=== PATIENT | female | born 1930 | race Caucasian/White ===

== ENCOUNTER 2017-08-08 17:04 | Inpatient (IN) | payer OTHER ==
--- NOTE | 2017-08-08 17:12 | PDOC ---
Attending Attestation - HPI HPI: 08/08/17 18:16 The patient is a 87 year old female, with a significant past medical history of hypertension, dementia, who presents to the emergency department via EMS for evaluation of cold-like symptoms. EMS reports the patient has been having dry cough and generalized body aches for approx. 2 days. The patient is unable to provide additional information secondary to dementia. Allergies: NKA Primary Care Physician: Dr. Story Documentation prepared by Martín Toth, acting as medical transport specialist for Cayla Culp DO. - Physicial Exam PE: 08/08/17 18:17 Constitutional: +Pleasantly demented. Awake, alert. No acute distress. Head: Normocephalic. Atraumatic Eyes: PERRL. EOMI. Conjunctivae are not pale. ENT: Mucous membranes are moist and intact. Posterior pharynx without exudates or erythema. Uvula midline. Neck: Supple. Full ROM. No lymphadenopathy. Cardiovascular: Regular rate. Regular rhythm. S1, S2 regular. Distal pulses are 2+ and symmetric. Pulmonary/Chest: No evidence of respiratory distress. Clear to auscultation bilaterally No wheezing, rales or rhonchi. Abdominal: +Suprapubic tenderness. Soft and non-distended. No rebound, guarding or rigidity. No organomegaly. No palpable masses. Good bowel sounds. Back: No CVA tenderness. Musculoskeletal: 2+ pitting edema lower extremities bilaterally. No redness or cellulitis. No cyanosis. No clubbing. Full range of motion in all extremities. No calf tenderness. Radial/pedal pulses are intact and 2+ bilaterally Skin: Skin is warm and dry. No petechiae. No purpura. Neurological: +Pleasantly demented. Cranial nerves II-XII are grossly intact. Normal speech. Strength is grossly symmetric. No sensory deficits. <Martín Toth - Last Filed: 08/08/17 18:16> - Resident Resident Name: Manan Parish - ED Attending Attestation I have performed the following: I have examined & evaluated the patient, The case was reviewed & discussed with the resident, I agree w/resident's findings & plan, Exceptions are as noted - Medical Decision Making 08/08/17 17:12 I, Dr. Cayla Culp DO, attest that this document has been prepared under my direction and personally reviewed by me in its entirety. I further attest, that it accurately reflects all work, treatment, procedures and medical decision -making performed by me. 08/08/17 18:22 a/p: 87yo pleasantly demented female sent from her ECF for eval of fever, cough , congestion -Pt is a poor historian and unable to provide a complete hx -febrile to 102.6 -will give tylenol -labs, cultures, trop, ekg, cxr, straight cath for ua -pt with suprapubic ttp -no rash, cellulitis -nonfocal neuro -if labs, cxr, ua negative will start tamiflu -will give ivf hydration <Cayla Culp - Last Filed: 08/08/17 18:25> Heart Score/ECG Review - ECG Intrepretation Comment:: 08/08/17 18:23 sinus at 71, nl axis, nl interval, lvh, no acute st/t wave findings <Cayla Culp - Last Filed: 08/08/17 18:25>
--- NOTE | 2017-08-08 17:15 | PDOC ---
History of Present Illness - General Stated Complaint: COLD SYMPTOMS Time Seen by Provider: 08/08/17 17:10 - History of Present Illness Initial Comments: 08/08/17 18:02 The patient is an 87 year old female with a history of HTN, Dementia who presents from [place] for evaluation of cold like symptoms. History is limited given the patient's baseline mental status. [place] papers indicate that the patient has been experiencing a non-productive cough and body aches over the past 2 days without any fevers prompting her presentation to the ED for evaluation. The patient endorses some SOB, but otherwise denies fevers, chest pain, abdominal pain, nausea, vomiting, or changes with urination or bowel movements. Past History - Past Medical History Allergies/Adverse Reactions: Allergies Allergy/AdvReac Type Severity Reaction Status Date / Time No Known Allergies Allergy Verified 08/08/17 18:19 Home Medications: Ambulatory Orders Amlodipine Besylate 5 mg PO BID 08/08/17 Aspirin 81 mg PO DAILY 08/08/17 Atorvastatin Calcium 20 mg PO DAILY 08/08/17 Carvedilol [Coreg -] 6.25 mg PO BID 08/08/17 Clopidogrel Bisulfate [Plavix] 75 mg PO DAILY 08/08/17 Cyanocobalamin [Vitamin B12 -] 500 mcg PO DAILY 08/08/17 Donepezil HCl 10 mg PO DAILY 08/08/17 Guaifenesin [Robitussin -] 5 ml PO TID 08/08/17 Memantine HCl 10 mg PO BID 08/08/17 Polyvinyl Alcohol [Tears Again] 1 drop OU BID 08/08/17 Valsartan 320 mg PO DAILY 08/08/17 Review of Systems - Review of Systems Comments:: 08/08/17 18:04 Constitutional: Body aches. No fevers, fatigue HEENT: No Rhinorrhea, nasal congestion, visual changes Cardiovascular: No chest pain, syncope, palpitations, lightheadedness Respiratory: Cough, COB. No Hemoptysis, Gastrointestinal: No Abdominal pain, Nausea, Vomiting, Constipation, Diarrhea, Melena Genitourinary: No Dysuria, Frequency, Urgency, Hesitancy, Hematuria, Flank pain Musculoskeletal: No Myalgia, arthralgia Skin: No rashes, itching, bruising, pallor Neurologic: No Headache, Dizziness, Numbness, Weakness, or Tingling Psychiatric: No Hallucinations. No SI or HI *Physical Exam - Physical Exam Comments: 08/08/17 18:05 General Appearance: Nourished. No Apparent Distress HEENT: EOMI, PAVITHRA. No Pharyngeal Erythema, Tonsillar Exudate, Tonsillar Erythema Neck: No Cervical Lymphadenopathy Respiratory/Chest: Lungs Clear, Normal Breath Sounds. No Crackles, Rales, Rhonchi, Wheezing Cardiovascular: Regular Rhythm, Regular Rate. No Murmur, Gallops, Rubs Gastrointestinal/Abdominal: Normal Bowel Sounds, Soft. Mild tenderness to palpation of over the suprapubic region. No Guarding, Rebound Musculoskeletal: No CVA Tenderness Extremity: Normal Capillary Refill Integumentary: Normal Color, Dry, Warm Neurologic: Fully Oriented, Alert, Normal Mood/Affect, Normal Response, ED Treatment Course - LABORATORY CBC & Chemistry Diagram: 08/08/17 18:45 08/08/17 18:45 Medical Decision Making - Medical Decision Making 08/08/17 18:06 The patient is an 87 year old female with a history of HTN, Dementia who presents from [place] for evaluation of cold like symptoms. Differential includes but is not limited to: Influenza, UTI, pneumonia, sepsis, infectious, metabolic derangement. Given the patient's limited history, we will obtain a septic work up including a cbc, cmp, lactate, ua, chest plain film, troponin, ekg to evaluate for possible etiologies. We will treat with tamiflu and tylenol here in the ED given her fever. We will continue to monitor and reassess. 08/08/17 23:46 CBC, cmp, ua are unremarkable. Chest plain film is unremarkable as preliminarily read by ED physician. Given the patient's physical exam and fevers here in the ED, we believe that she requires admission for further management of her symptoms. We discussed the case with the hospitalist team who accepted the patient for admission. *DC/Admit/Observation/Transfer Diagnosis at time of Disposition: Influenza-like illness Altered mental status Qualifiers: Altered mental status type: unspecified Qualified Code(s): R41.82 - Altered mental status, unspecified - Discharge Dispostion Condition at time of disposition: Guarded Admit: Yes - Referrals - Patient Instructions - Post Discharge Activity
[2017-08-08] MEDS ORDERED: SODIUM CHLORIDE 1,000 ML IV STA (18:29)
[2017-08-08] MEDS ORDERED: OSELTAMIVIR PHOSPHATE 75 MG CAPSULE PO ONE (18:30)
[2017-08-08] MEDS ORDERED: ACETAMINOPHEN 1000 MG/100 ML VIAL (NON FORMULARY) IVPB ONE (18:30)
[2017-08-08] MEDS ORDERED: OSELTAMIVIR PHOSPHATE 75 MG CAPSULE ONE (18:30)
[2017-08-08] MEDS ORDERED: ACETAMINOPHEN INJECTION 100 ML IVPB ONE (18:31)
[2017-08-08 18:54] LABS: BASO % 0.3 % (0-2.0); EOS % 0.3 % (0-4.5); HEMATOCRIT 40.2 % (32.4-45.2); HEMOGLOBIN 13.2 GM/dL (10.7-15.3); LYMPH % 16.1 % (8-40); MCH 30.4 pg (25.7-33.7); MCHC 32.9 g/dl (32.0-36.0); MEAN CELL VOLUME 92.5 fl (80-96); MEAN PLT VOLUME 8.7 fl (7.5-11.1); MONO % 8.6 % (3.8-10.2); NEUT % 74.7 % (42.8-82.8); PLATELET COUNT 151 K/MM3 (134-434); RBC 4.34 M/mm3 (3.60-5.2); RDW 13.7 % (11.6-15.6)
[2017-08-08 19:06] LABS: VENOUS PC02 42.6 mmHg (38-52); VENOUS PH 7.45 (7.32-7.42)
[2017-08-08 19:07] LABS: VENOUS PO2 19.6 mmHg (28-48)
[2017-08-08 19:08] LABS: INR 1.01 (0.82-1.09); PROTHROMBIN TIME (PATIENT) 11.4 SEC (9.98-11.88)
[2017-08-08 19:11] LABS: ACTIVATED PTT 29.7 SECONDS (26.9-34.4)
[2017-08-08 19:38] LABS: ALBUMIN 3.6 g/dl (3.4-5.0); ANION GAP 7 (8-16); BLOOD UREA NITROGEN 23 mg/dL (7-18); CALCIUM 8.6 mg/dL (8.5-10.1); CHLORIDE 102 mmol/L (98-107); CO2 29 mmol/L (21-32); GLUCOSE,RANDOM 99 mg/dL (74-106); POTASSIUM 4.2 mmol/L (3.5-5.1); SGOT/AST 20 U/L (15-37); SGPT/ALT 20 U/L (12-78); SODIUM 138 mmol/L (136-145)
[2017-08-08 19:43] LABS: ALK PHOS 73 U/L (45-117); BILIRUBIN,TOTAL 0.6 mg/dL (0.2-1.0); CREATININE 0.9 mg/dL (0.55-1.02); TOT PROT 7.3 g/dl (6.4-8.2)
[2017-08-08] MEDS ORDERED: PANTOPRAZOLE 40 MG TABLET (FP) ONE (19:51)
[2017-08-08 20:10] LABS: URINE APPEARANCE CLEAR; URINE BILIRUBIN NEGATIVE (NEGATIVE); URINE BLOOD NEGATIVE (NEGATIVE); URINE COLOR YELLOW; URINE GLUCOSE (UA) NEGATIVE (NEGATIVE); URINE KETONE NEGATIVE (NEGATIVE); URINE LEUK ESTERASE NEGATIVE (NEGATIVE); URINE NITRITE NEGATIVE (NEGATIVE); URINE PROTEIN NEGATIVE (NEGATIVE); URINE UROBILINOGEN 4.0 E.U/dl mg/dL (0.2-1.0)
--- NOTE | 2017-08-08 21:44 | HP ---
CHIEF COMPLAINT: Flulike Symptoms x4 days PCP:[facility] Tabitha-Dr Apple HISTORY OF PRESENT ILLNESS: Pt is demented (confused at baseline) Hx was obtained from medical chart, and by [facility] the jail. Pt is an 87 yo F with PMHx of dementia, HTN, HLD, CAD s/p stents x6 BIBEMS by ambulance from [facility] with headaches, weakness and cough. Pt has had a dry cough with generalized body aches for about 4 days. No documented fever, no n/v, no change in urinary or bowel habits. The aide noticed unsteady gait in her today. At baseline she is often confused but able to communicate with other residents and staff, ambulates with a walker and takes regular diet. In ED pt was noted to have Tmax of 102.6 ER course was notable for: (1)Tmax-102.6, (2)ABG,CMP, CBC, UA-ve (3)Iv tylenol, tamifly 75 mg given (4) urine, bld cx-pending (5) EKG- NSR, QTC 419 (6) CXR- not read (no infiltrates noted at this point) Recent Travel: PAST MEDICAL HISTORY: dementia, HTN, HLD, CAD s/p stent PAST SURGICAL HISTORY: s/p stents for CAD Social History: Smoking:Previous smoker Alcohol:No Drugs:No Family History: Allergies No Known Allergies Allergy (Verified 08/08/17 18:19) HOME MEDICATIONS: Home Medications Medication Instructions Recorded Amlodipine Besylate 5 mg PO BID 08/08/17 Aspirin 81 mg PO DAILY 08/08/17 Atorvastatin Calcium 20 mg PO DAILY 08/08/17 Carvedilol [Coreg -] 6.25 mg PO BID 08/08/17 Clopidogrel Bisulfate [Plavix] 75 mg PO DAILY 08/08/17 Cyanocobalamin [Vitamin B12 -] 500 mcg PO DAILY 08/08/17 Donepezil HCl 10 mg PO DAILY 08/08/17 Guaifenesin [Robitussin -] 5 ml PO TID 08/08/17 Memantine HCl 10 mg PO BID 08/08/17 Polyvinyl Alcohol [Tears Again] 1 drop OU BID 08/08/17 Valsartan 320 mg PO DAILY 08/08/17 REVIEW OF SYSTEMS CONSTITUTIONAL: fever+ Absent: chills, diaphoresis, generalized weakness, malaise, loss of appetite, weight change HEENT: Absent: rhinorrhea, nasal congestion, throat pain, throat swelling, difficulty swallowing, mouth swelling, ear pain, eye pain, visual changes CARDIOVASCULAR: Absent: chest pain, syncope, palpitations, irregular heart rate, lightheadedness , peripheral edema RESPIRATORY: cough+ Absent: shortness of breath, dyspnea with exertion, orthopnea, wheezing, stridor, hemoptysis GASTROINTESTINAL: Absent: abdominal pain, abdominal distension, nausea, vomiting, diarrhea, constipation, melena, hematochezia GENITOURINARY: Absent: dysuria, frequency, urgency, hesitancy, hematuria, flank pain, genital pain MUSCULOSKELETAL: myalgia+ Absent:arthralgia, joint swelling, back pain, neck pain SKIN: Absent: rash, itching, pallor HEMATOLOGIC/IMMUNOLOGIC: Absent: easy bleeding, easy bruising, lymphadenopathy, frequent infections ENDOCRINE: Absent: unexplained weight gain, unexplained weight loss, heat intolerance, cold intolerance NEUROLOGIC: unsteady gait+ Absent: headache, focal weakness or paresthesias, dizziness, seizure, mental status changes, bladder or bowel incontinence PSYCHIATRIC: Absent: anxiety, depression, suicidal or homicidal ideation, hallucinations. PHYSICAL EXAMINATION Vital Signs - 24 hr 08/08/17 17:05 Temperature 102.6 F H Pulse Rate 76 Respiratory 18 Rate Blood Pressure 147/78 O2 Sat by Pulse 100 Oximetry (%) GENERAL: Awake, alert, oriented to person (demented ), in no acute respiration distress. HEAD: Normal with no signs of trauma. EYES: Pupils equal, round and reactive to light, sclera anicteric, conjunctiva clear. EARS, NOSE, THROAT: oropharynx clear without exudates. Moist mucous membranes. NECK: Normal range of motion, supple without lymphadenopathy, JVD LUNGS: Breath sounds equal, clear to auscultation bilaterally. No wheezes, and no crackles. HEART: Regular rate and rhythm, normal S1 and S2 , murmur+ ABDOMEN: Soft, nontender, not distended, normoactive bowel sounds, no guarding, no rebound, no masses. MUSCULOSKELETAL: Normal range of motion at all joints. No bony deformities or tenderness. No CVA tenderness. UPPER EXTREMITIES: 2+ pulses, warm, well-perfused. No cyanosis. No clubbing. No peripheral edema. LOWER EXTREMITIES: 2+ pulses, warm, well-perfused. No calf tenderness. 1+ bilat. peripheral edema. NEUROLOGICAL: Cranial nerves II-XII intact. Normal speech. PSYCHIATRIC: Cooperative. Good eye contact. Appropriate mood and affect. CBC, BMP 08/08/17 18:45 08/08/17 18:45 Laboratory Results - last 24 hr 08/08/17 08/08/17 08/08/17 18:45 18:45 18:45 WBC 9.0 RBC 4.34 Hgb 13.2 Hct 40.2 MCV 92.5 MCH 30.4 MCHC 32.9 RDW 13.7 Plt Count 151 MPV 8.7 Neutrophils % 74.7 Lymphocytes % 16.1 Monocytes % 8.6 Eosinophils % 0.3 Basophils % 0.3 PT with INR 11.40 INR 1.01 PTT (Actin FS) 29.7 VBG pH 7.45 H POC VBG pCO2 42.6 POC VBG pO2 19.6 L* Mixed VBG HCO3 29.2 H Sodium Potassium Chloride Carbon Dioxide Anion Gap BUN Creatinine Creat Clearance w eGFR Random Glucose Lactic Acid Calcium Total Bilirubin AST ALT Alkaline Phosphatase Creatine Kinase Troponin I Total Protein Albumin Urine Color Urine Appearance Urine pH Ur Specific New Era Urine Protein Urine Glucose (UA) Urine Ketones Urine Blood Urine Nitrite Urine Bilirubin Urine Urobilinogen Ur Leukocyte Esterase 08/08/17 08/08/17 08/08/17 18:45 18:45 19:57 WBC RBC Hgb Hct MCV MCH MCHC RDW Plt Count MPV Neutrophils % Lymphocytes % Monocytes % Eosinophils % Basophils % PT with INR INR PTT (Actin FS) VBG pH POC VBG pCO2 POC VBG pO2 Mixed VBG HCO3 Sodium 138 Potassium 4.2 Chloride 102 Carbon Dioxide 29 Anion Gap 7 L BUN 23 H Creatinine 0.9 Creat Clearance w eGFR 58.95 Random Glucose 99 Lactic Acid 1.4 Calcium 8.6 Total Bilirubin 0.6 AST 20 ALT 20 Alkaline Phosphatase 73 Creatine Kinase 90 Troponin I < 0.02 Total Protein 7.3 Albumin 3.6 Urine Color Yellow Urine Appearance Clear Urine pH 7.0 Ur Specific New Era 1.020 Urine Protein Negative Urine Glucose (UA) Negative Urine Ketones Negative Urine Blood Negative Urine Nitrite Negative Urine Bilirubin Negative Urine Urobilinogen 4.0 e.u/dl H Ur Leukocyte Esterase Negative ASSESSMENT/PLAN: Pt is an 87 yo F with PMHx of dementia, HTN, HLD, CAD s/p stents x6 BIBEMS by ambulance from [facility] with headaches, weakness and cough. Influenza: Cough, fever, myalgias, with high suspicion for flu Despite Flu swab taken but unable to be run Tamiflu 75mg given in ED Cont Tamiflu 30mg bid x5 days (renal dose per pharmacy) Iv fluid normal saline @75/hr Follow cx- urine and bld CBC, CMP UA--ve CXR- pending reading, no clear infiltrates noted Cont Robutussin 5ml bid Cont Vit B12 500mg Hold off antibiotics for now as no clear indication HTN: Resume home Amlodipine 5mg bid Coreg 6.25 bid Valsartan 320mg daily HLD, Atorvastatin 20mg HS CAD s/p stents x6 Plavix 75mg daily ASA 81mg daily Dementia: Memantine 10mg bid Donepezil 10mg daily FEN NS @75 Monitor lytes Regular diet PPX Heparin SQ 5000iu tids Dispo: Admit Med surg Visit type - Emergency Visit Emergency Visit: Yes ED Registration Date: 08/08/17 Care time: The patient presented to the Emergency Department on the above date and was hospitalized for further evaluation of their emergent condition. - New Patient This patient is new to me today: Yes Date on this admission: 08/09/17 - Critical Care Critical Care patient: No
[2017-08-08] MEDS ORDERED: ACETAMINOPHEN 325 MG TABLET (FP) PO PRN (22:59)
--- NOTE | 2017-08-08 23:12 | PN ---
Teaching Attending Note Name of Resident: Donna Paris ATTENDING PHYSICIAN STATEMENT I saw and evaluated the patient. I reviewed the resident's note and discussed the case with the resident. I agree with the resident's findings and plan as documented. HPI per report as pt is poor historian SUBJECTIVE: 87yo F with PMH dementia, HTN, dyslipidemia, CAD s/p 6 stents sent [address] [facility] for myalgia, fatigue and dry cough x 5days. pt reports no symptoms currently. OBJECTIVE: Last Vital Signs Temp Pulse Resp BP Pulse Ox 99.4 F 71 20 148/62 95 08/08/17 22:49 08/08/17 22:49 08/08/17 22:49 08/08/17 22:49 08/08/17 22:49 General NAD A&O x2 (self and location), does not follow commands CV S1 S2 + lungs poor air entry, decreased breath sounds ABdomen soft NT/ND Extremiteis no pedal edema ASSESSMENT AND PLAN: 87yo F with PMH dementia, HTN, dyslipidemia, CAD s/p 6 stents sent from [facility] for myalgia, fatigue and dry cough x 5days 1. FLu- medicine admission. Tm 102.6. hospital shortage of flu swabs, however based on present symptoms high suspicion for flu. will start tamiflu. IVF, droplet precautions. 2. HTN- cont home medications 3. Dementia- cont memantine, 4. CAD s/p stents- cont plavix/asa 5. DVT ppx- hep sq
[2017-08-08] MEDS: SODIUM CHLORIDE 1,000 ML IV SCH (23:33)
[2017-08-09] MEDS: HEPARIN NA (PORCINE) 5,000 UNITS/ML 1ML VIAL SQ SCH ×3 (06:01→22:30)
[2017-08-09] MEDS: guaiFENesin 200 MG/10 ML 10 ML UNIT-DOSE CUPS PO SCH ×3 (06:01→22:30)
[2017-08-09 08:54] LABS: BASO % 0.3 % (0-2.0); EOS % 0.3 % (0-4.5); HEMATOCRIT 38.5 % (32.4-45.2); HEMOGLOBIN 12.3 GM/dL (10.7-15.3); LYMPH % 14.1 % (8-40); MCH 29.8 pg (25.7-33.7); MCHC 32.1 g/dl (32.0-36.0); MEAN PLT VOLUME 9.5 fl (7.5-11.1); NEUT % 79.3 % (42.8-82.8); RBC 4.14 M/mm3 (3.60-5.2); RDW 13.6 % (11.6-15.6); WHITE BLOOD COUNT 13.2 K/mm3 (4.0-10.0)
[2017-08-09 09:02] LABS: ALBUMIN 3.1 g/dl (3.4-5.0); ALK PHOS 64 U/L (45-117); ANION GAP 9 (8-16); BLOOD UREA NITROGEN 15 mg/dL (7-18); CALCIUM 8.4 mg/dL (8.5-10.1); CHLORIDE 106 mmol/L (98-107); CO2 27 mmol/L (21-32); CREATININE 0.6 mg/dL (0.55-1.02); GLUCOSE,RANDOM 105 mg/dL (74-106); PHOSPHOROUS 2.9 mg/dL (2.5-4.9); POTASSIUM 3.9 mmol/L (3.5-5.1); SGOT/AST 20 U/L (15-37); SGPT/ALT 15 U/L (12-78); SODIUM 142 mmol/L (136-145); TOT PROT 6.4 g/dl (6.4-8.2)
[2017-08-09 09:04] LABS: MAGNESIUM 2.2 mg/dL (1.8-2.4)
[2017-08-09 09:08] LABS: ACTIVATED PTT > 400.0 SECONDS (26.9-34.4)
--- NOTE | 2017-08-09 09:11 | EKG ---
Test Reason : Blood Pressure : / mmHG Vent. Rate : 071 BPM Atrial Rate : 071 BPM P-R Int : 178 ms QRS Dur : 084 ms QT Int : 386 ms P-R-T Axes : 056 -12 056 degrees QTc Int : 419 ms NORMAL SINUS RHYTHM MODERATE VOLTAGE CRITERIA FOR LVH, MAY BE NORMAL VARIANT NO PREVIOUS ECGS AVAILABLE Confirmed by LUCA TAVERAS MD ([id number]) on 08/09/2017 9:11:22 AM Referred By: AM Confirmed By:LUCA TAVERAS MD
[2017-08-09] MEDS ORDERED: OSELTAMIVIR PHOSPHATE 75 MG CAPSULE PO SCH (10:00)
[2017-08-09 10:13] LABS: PLATELET COUNT 140 K/MM3 (134-434); PLATELET ESTIMATE ADEQUATE
[2017-08-09] MEDS: CLOPIDOGREL BISULFATE 75 MG TABLET (FP) PO SCH (10:25)
[2017-08-09] MEDS: CARVEDILOL 6.25 MG TABLET (FP) PO SCH ×2 (10:25→22:30)
[2017-08-09] MEDS: ASPIRIN 81 MG CHEWABLE TABLETS PO SCH (10:25)
[2017-08-09] MEDS: CYANOCOBALAMIN 1,000 MCG TABLET (FP) PO SCH (10:25)
[2017-08-09] MEDS: VALSARTAN 160 MG TABLET (UD) PO SCH (10:26)
[2017-08-09] MEDS: MEMANTINE HCL 10 MG TABLET (FP) PO SCH ×2 (10:26→22:30)
[2017-08-09] MEDS: OSELTAMIVIR PHOSPHATE 30 MG CAPSULE PO SCH ×2 (10:26→22:52)
[2017-08-09] MEDS: amLODIPine BESYLATE 5 MG TABLET (FP) PO SCH ×2 (10:27→22:30)
--- NOTE | 2017-08-09 16:41 | PN ---
Progress Note (short form) - Note Progress Note: Subjective: The patient was seen and examined in the ED, she is tearful stating "I don't know what is wrong with me". She denies any discomfort at this time. She is still with a cough Current Medications Generic Name Dose Route Start Last Admin Trade Name Freq PRN Reason Stop Dose Admin Acetaminophen 650 mg 08/08/17 22:59 Tylenol - PO Q6H PRN FEVER Amlodipine Besylate 5 mg 08/09/17 10:00 08/09/17 10:27 Norvasc - PO 5 mg BID SNEHAL Administration Artificial Tears 1 drop 08/09/17 10:00 Artificial Tears OU BID SNEHAL Aspirin 81 mg 08/09/17 10:00 08/09/17 10:25 Asa - PO 81 mg DAILY SNEHAL Administration Atorvastatin Calcium 20 mg 08/09/17 22:00 Lipitor - PO HS SNEHAL Carvedilol 6.25 mg 08/09/17 10:00 08/09/17 10:25 Coreg - PO 6.25 mg BID SNEHAL Administration Clopidogrel Bisulfate 75 mg 08/09/17 10:00 08/09/17 10:25 Plavix - PO 75 mg DAILY SNEHAL Administration Cyanocobalamin 500 mcg 08/09/17 10:00 08/09/17 10:25 Vitamin B12 - PO 500 mcg DAILY SNEHAL Administration Donepezil HCl 10 mg 08/09/17 22:00 Aricept - PO HS SNEHAL Guaifenesin 5 ml 08/09/17 06:00 08/09/17 06:01 Robitussin - PO 5 ml TID SNEHAL Administration Heparin Sodium (Porcine) 5,000 unit 08/09/17 06:00 08/09/17 06:01 Heparin - SQ 5,000 unit TID SNEHAL Administration Sodium Chloride 1,000 mls @ 75 mls/hr 08/08/17 23:30 08/08/17 23:33 Normal Saline - IV 75 mls/hr ASDIR SNEHAL Administration Memantine 10 mg 08/09/17 10:00 08/09/17 10:26 Namenda - PO 10 mg BID SNEHAL Administration Oseltamivir Phosphate 30 mg 08/09/17 10:00 08/09/17 10:26 Tamiflu - PO 08/14/17 09:59 30 mg BID SNEHAL Administration Valsartan 320 mg 08/09/17 10:00 08/09/17 10:26 Diovan - PO 320 mg DAILY SNEHAL Administration Objective: Vital Signs Period Temp Pulse Resp BP Sys/Medel Pulse Ox Last 24 Hr 97.8 F-99.4 F 62-82 14-20 116-148/53-74 95-96 Physical Exam: General: A&Ox1 (person only) Lungs: B/l rhonchi Heart: RRR, S1S2 Abd: Soft, non-tender, non-distended. Normoactive bowel sounds Neuro: Unable to assess, patient is crying and will not follow commands Ext: No edema CBCD WBC 13.2 K/mm3 (4.0-10.0) H D 08/09/17 08:22 RBC 4.14 M/mm3 (3.60-5.2) 08/09/17 08:22 Hgb 12.3 GM/dL (10.7-15.3) 08/09/17 08:22 Hct 38.5 % (32.4-45.2) 08/09/17 08:22 MCV 93.0 fl (80-96) 08/09/17 08:22 MCHC 32.1 g/dl (32.0-36.0) 08/09/17 08:22 RDW 13.6 % (11.6-15.6) 08/09/17 08:22 Plt Count 140 K/MM3 (134-434) 08/09/17 08:22 MPV 9.5 fl (7.5-11.1) 08/09/17 08:22 CMP Sodium 142 mmol/L (136-145) 08/09/17 08:22 Potassium 3.9 mmol/L (3.5-5.1) 08/09/17 08:22 Chloride 106 mmol/L (98-107) 08/09/17 08:22 Carbon Dioxide 27 mmol/L (21-32) 08/09/17 08:22 Anion Gap 9 (8-16) 08/09/17 08:22 BUN 15 mg/dL (7-18) 08/09/17 08:22 Creatinine 0.6 mg/dL (0.55-1.02) 08/09/17 08:22 Creat Clearance w eGFR > 60 (>60) 08/09/17 08:22 Random Glucose 105 mg/dL (74-106) 08/09/17 08:22 Calcium 8.4 mg/dL (8.5-10.1) L 08/09/17 08:22 Total Bilirubin 1.0 mg/dL (0.2-1.0) D 08/09/17 08:22 AST 20 U/L (15-37) 08/09/17 08:22 ALT 15 U/L (12-78) 08/09/17 08:22 Alkaline Phosphatase 64 U/L (45-117) 08/09/17 08:22 Total Protein 6.4 g/dl (6.4-8.2) 08/09/17 08:22 Albumin 3.1 g/dl (3.4-5.0) L 08/09/17 08:22 CARDIAC ENZYMES Creatine Kinase 90 IU/L (26-192) 08/08/17 18:45 Troponin I < 0.02 ng/ml (0.00-0.05) 08/09/17 08:22 Microbiology 08/08/17 20:55 Nasopharyngeal Swab Influenza Types A,B Antigen (THEA) - Preliminary 08/08/17 20:55 Nasopharyngeal Swab - Preliminary Assessment: This is an 87 year old female with PMHx of dementia, HTN, dyslipidemia, CAD s/p stents x6, who presented to the ED with myalgia, fatigue, and dry cough x5 days. Plan: 1) Influenza - Will empirically treat for influenza - Influenza A&B pending - Tamiflu 30mg po bid (dosing for CrCl 30) - Isolation precautions 2) Leukocytosis - Likely 2/2 influenza - Continue to trend - F/u urine and blood cultures - Chest x-ray with no acute process 3) CAD s/p stents - Continue Plavix - Continue ASA 4) Dementia - Aricept - Continue Namenda 5) HTN - Continue Coreg - Continue Norvasc - Continue Diovan 6) F/E/N: - Sodium controlled diet - Monitor electrolytes 7) Prophylaxis: - Heparin 5,000u sq bid - PT evaluation 8) Dispo: - Requires continued inpatient care Visit type - Emergency Visit Emergency Visit: Yes ED Registration Date: 08/08/17 Care time: The patient presented to the Emergency Department on the above date and was hospitalized for further evaluation of their emergent condition. - New Patient This patient is new to me today: Yes Date on this admission: 08/09/17 - Critical Care Critical Care patient: No
[2017-08-09] MEDS ORDERED: ALBUTEROL SO4 0.083% IH SOL 2.5 MG/3 ML VIAL.NEB. NEB PRN (17:44)
[2017-08-09] MEDS: ARTIFICIAL TEARS (POLYVINYL ALCOHOL 1.4%) OPTH DROPS OU SCH ×2 (19:49→22:52)
[2017-08-09] MEDS: SODIUM CHLORIDE 1,000 ML IV SCH ×2 (21:57→23:30)
[2017-08-09 22:03] LABS: HEMATOCRIT 40.3 % (32.4-45.2); HEMOGLOBIN 13.3 GM/dL (10.7-15.3); MCH 30.7 pg (25.7-33.7); MEAN CELL VOLUME 93.1 fl (80-96); MEAN PLT VOLUME 8.4 fl (7.5-11.1); PLATELET COUNT 162 K/MM3 (134-434); RBC 4.33 M/mm3 (3.60-5.2); RDW 13.7 % (11.6-15.6); WHITE BLOOD COUNT 9.4 K/mm3 (4.0-10.0)
[2017-08-09 22:11] VITALS: BMI 25.9
[2017-08-09] MEDS: DONEPEZIL HCL 10 MG TABLET (FP) PO SCH (22:30)
[2017-08-09] MEDS: ATORVASTATIN CA 20 MG TABLET (FP) PO SCH (22:30)
[2017-08-10] MEDS ORDERED: PT OWN MED DRAWER 7, Y5N ONE ×2 (05:26→09:32)
[2017-08-10] MEDS: guaiFENesin 200 MG/10 ML 10 ML UNIT-DOSE CUPS PO SCH ×3 (06:09→21:53)
[2017-08-10 08:30] LABS: HEMATOCRIT 34.5 % (32.4-45.2); HEMOGLOBIN 11.4 GM/dL (10.7-15.3); MCH 30.5 pg (25.7-33.7); MCHC 33.1 g/dl (32.0-36.0); MEAN CELL VOLUME 92.2 fl (80-96); MEAN PLT VOLUME 8.6 fl (7.5-11.1); PLATELET COUNT 146 K/MM3 (134-434); RBC 3.74 M/mm3 (3.60-5.2); RDW 13.1 % (11.6-15.6); WHITE BLOOD COUNT 8.4 K/mm3 (4.0-10.0)
[2017-08-10] MEDS: MEMANTINE HCL 10 MG TABLET (FP) PO SCH ×2 (09:39→21:53)
[2017-08-10] MEDS: ASPIRIN 81 MG CHEWABLE TABLETS PO SCH (09:39)
[2017-08-10] MEDS: CARVEDILOL 6.25 MG TABLET (FP) PO SCH ×2 (09:39→21:53)
[2017-08-10] MEDS: HEPARIN NA (PORCINE) 5,000 UNITS/ML 1ML VIAL SQ SCH ×2 (09:39→21:54)
[2017-08-10] MEDS: CYANOCOBALAMIN 1,000 MCG TABLET (FP) PO SCH (09:39)
[2017-08-10] MEDS: CLOPIDOGREL BISULFATE 75 MG TABLET (FP) PO SCH (09:39)
[2017-08-10] MEDS: ARTIFICIAL TEARS (POLYVINYL ALCOHOL 1.4%) OPTH DROPS OU SCH ×2 (09:39→21:54)
[2017-08-10] MEDS: VALSARTAN 160 MG TABLET (UD) PO SCH (09:39)
[2017-08-10] MEDS: amLODIPine BESYLATE 5 MG TABLET (FP) PO SCH ×2 (09:39→21:53)
[2017-08-10] MEDS: OSELTAMIVIR PHOSPHATE 30 MG CAPSULE PO SCH ×2 (09:40→21:54)
--- NOTE | 2017-08-10 11:07 | PN ---
Progress Note (short form) - Note Progress Note: Subjective: The patient was seen and examined at the bedside, remains tearful Current Medications Generic Name Dose Route Start Last Admin Trade Name Freq PRN Reason Stop Dose Admin Acetaminophen 650 mg 08/08/17 22:59 Tylenol - PO Q6H PRN FEVER Amlodipine Besylate 5 mg 08/09/17 10:00 08/09/17 10:27 Norvasc - PO 5 mg BID SNEHAL Administration Artificial Tears 1 drop 08/09/17 10:00 Artificial Tears OU BID SNEHAL Aspirin 81 mg 08/09/17 10:00 08/09/17 10:25 Asa - PO 81 mg DAILY SNEHAL Administration Atorvastatin Calcium 20 mg 08/09/17 22:00 Lipitor - PO HS SNEHAL Carvedilol 6.25 mg 08/09/17 10:00 08/09/17 10:25 Coreg - PO 6.25 mg BID SNEHAL Administration Clopidogrel Bisulfate 75 mg 08/09/17 10:00 08/09/17 10:25 Plavix - PO 75 mg DAILY SNEHAL Administration Cyanocobalamin 500 mcg 08/09/17 10:00 08/09/17 10:25 Vitamin B12 - PO 500 mcg DAILY SNEHAL Administration Donepezil HCl 10 mg 08/09/17 22:00 Aricept - PO HS SNEHAL Guaifenesin 5 ml 08/09/17 06:00 08/09/17 06:01 Robitussin - PO 5 ml TID SNEHAL Administration Heparin Sodium (Porcine) 5,000 unit 08/09/17 06:00 08/09/17 06:01 Heparin - SQ 5,000 unit TID SNEHAL Administration Sodium Chloride 1,000 mls @ 75 mls/hr 08/08/17 23:30 08/08/17 23:33 Normal Saline - IV 75 mls/hr ASDIR SNEHAL Administration Memantine 10 mg 08/09/17 10:00 08/09/17 10:26 Namenda - PO 10 mg BID SNEHAL Administration Oseltamivir Phosphate 30 mg 08/09/17 10:00 08/09/17 10:26 Tamiflu - PO 08/14/17 09:59 30 mg BID SNEHAL Administration Valsartan 320 mg 08/09/17 10:00 08/09/17 10:26 Diovan - PO 320 mg DAILY SNEHAL Administration Objective: Vital Signs Period Temp Pulse Resp BP Sys/Medel Pulse Ox Last 24 Hr 97.8 F-99.4 F 62-82 14-20 116-148/53-74 95-96 Physical Exam: General: A&Ox1 (person only) Lungs: B/l rhonchi Heart: RRR, S1S2 Abd: Soft, non-tender, non-distended. Normoactive bowel sounds Neuro: Patient uncooperative Ext: No edema CBCD WBC 8.4 K/mm3 (4.0-10.0) 08/10/17 07:00 RBC 3.74 M/mm3 (3.60-5.2) 08/10/17 07:00 Hgb 11.4 GM/dL (10.7-15.3) D 08/10/17 07:00 Hct 34.5 % (32.4-45.2) 08/10/17 07:00 MCV 92.2 fl (80-96) 08/10/17 07:00 MCHC 33.1 g/dl (32.0-36.0) 08/10/17 07:00 RDW 13.1 % (11.6-15.6) 08/10/17 07:00 Plt Count 146 K/MM3 (134-434) 08/10/17 07:00 MPV 8.6 fl (7.5-11.1) 08/10/17 07:00 CMP Sodium 142 mmol/L (136-145) 08/09/17 08:22 Potassium 3.9 mmol/L (3.5-5.1) 08/09/17 08:22 Chloride 106 mmol/L (98-107) 08/09/17 08:22 Carbon Dioxide 27 mmol/L (21-32) 08/09/17 08:22 Anion Gap 9 (8-16) 08/09/17 08:22 BUN 15 mg/dL (7-18) 08/09/17 08:22 Creatinine 0.6 mg/dL (0.55-1.02) 08/09/17 08:22 Creat Clearance w eGFR > 60 (>60) 08/09/17 08:22 Random Glucose 105 mg/dL (74-106) 08/09/17 08:22 Calcium 8.4 mg/dL (8.5-10.1) L 08/09/17 08:22 Total Bilirubin 1.0 mg/dL (0.2-1.0) D 08/09/17 08:22 AST 20 U/L (15-37) 08/09/17 08:22 ALT 15 U/L (12-78) 08/09/17 08:22 Alkaline Phosphatase 64 U/L (45-117) 08/09/17 08:22 Total Protein 6.4 g/dl (6.4-8.2) 08/09/17 08:22 Albumin 3.1 g/dl (3.4-5.0) L 08/09/17 08:22 CARDIAC ENZYMES Creatine Kinase 90 IU/L (26-192) 08/08/17 18:45 Troponin I < 0.02 ng/ml (0.00-0.05) 08/09/17 08:22 Microbiology 08/08/17 18:45 Blood - Peripheral Venous Blood Culture - Preliminary NO GROWTH OBTAINED AFTER 24 HOURS, INCUBATION TO CONTINUE FOR 4 DAYS. 08/08/17 18:45 Blood - Peripheral Venous Blood Culture - Preliminary NO GROWTH OBTAINED AFTER 24 HOURS, INCUBATION TO CONTINUE FOR 4 DAYS. 08/08/17 20:55 Nasopharyngeal Swab Influenza Types A,B Antigen (THEA) - Preliminary 08/08/17 20:55 Nasopharyngeal Swab - Preliminary Assessment: This is an 87 year old female with PMHx of dementia, HTN, dyslipidemia, CAD s/p stents x6, who presented to the ED with myalgia, fatigue, and dry cough x5 days. Plan: 1) Influenza - Will empirically treat for influenza - Influenza A&B pending - Tamiflu 30mg po bid (dosing for CrCl 30) - Isolation precautions 2) Leukocytosis - Resolved - Chest x-ray with no acute process 3) CAD s/p stents - Continue Plavix - Continue ASA 4) Dementia - Aricept - Continue Namenda 5) HTN - Continue Coreg - Continue Norvasc - Continue Diovan 6) F/E/N: - Sodium controlled diet - Monitor electrolytes 7) Prophylaxis: - Heparin 5,000u sq bid - PT evaluation 8) Dispo: - Requires continued inpatient care Visit type - Emergency Visit Emergency Visit: Yes ED Registration Date: 08/08/17 Care time: The patient presented to the Emergency Department on the above date and was hospitalized for further evaluation of their emergent condition. - New Patient This patient is new to me today: No - Critical Care Critical Care patient: No
[2017-08-10] MEDS: ATORVASTATIN CA 20 MG TABLET (FP) PO SCH (21:53)
[2017-08-10] MEDS: DONEPEZIL HCL 10 MG TABLET (FP) PO SCH (21:53)
[2017-08-10] MEDS: SODIUM CHLORIDE 1,000 ML IV SCH ×2 (21:58→23:30)
[2017-08-11] MEDS: guaiFENesin 200 MG/10 ML 10 ML UNIT-DOSE CUPS PO SCH (05:54)
--- NOTE | 2017-08-11 08:32 | DS ---
Physical Examination Vital Signs: Vital Signs Temperature 98.1 F 08/11/17 05:57 Pulse Rate 65 08/11/17 05:57 Respiratory Rate 20 08/11/17 05:57 Blood Pressure 120/64 08/11/17 05:57 O2 Sat by Pulse Oximetry (%) 97 08/10/17 20:14 Labs: CBC, BMP 08/10/17 07:00 08/09/17 08:22 Discharge Summary Reason For Visit: INFLUENZA LIKE ILLNESS ALTERED MENTAL STATUS Current Active Problems Altered mental status (Acute) Influenza-like illness (Acute) Condition: Improved - Instructions Diet, Activity, Other Instructions: Please return to the ED with new, persistent, or worsening symptoms. Please follow-up with your primary care provider within 2-3 days. Referrals: Garo Story [Primary Care Provider] - (Please follow-up with your primary care provider within 2-3 days) Disposition: LONGTERM FACILITY - Home Medications Comprehensive Discharge Medication List: Ambulatory Orders Amlodipine Besylate 5 mg PO BID 08/08/17 Aspirin 81 mg PO DAILY 08/08/17 Atorvastatin Calcium 20 mg PO DAILY 08/08/17 Carvedilol [Coreg -] 6.25 mg PO BID 08/08/17 Clopidogrel Bisulfate [Plavix] 75 mg PO DAILY 08/08/17 Cyanocobalamin [Vitamin B12 -] 500 mcg PO DAILY 08/08/17 Donepezil HCl 10 mg PO DAILY 08/08/17 Guaifenesin [Robitussin -] 5 ml PO TID 08/08/17 Memantine HCl 10 mg PO BID 08/08/17 Polyvinyl Alcohol [Tears Again] 1 drop OU BID 08/08/17 Valsartan 320 mg PO DAILY 08/08/17 Oseltamivir Phosphate [Tamiflu -] 30 mg PO BID #4 capsule 08/11/17
[2017-08-11 09:33] VITALS: BP 150/61; PULSE 66; TEMP 99.3
[2017-08-11] MEDS ORDERED: PT OWN MED DRAWER 7, Y5N ONE (10:53)
[2017-08-11] MEDS: ARTIFICIAL TEARS (POLYVINYL ALCOHOL 1.4%) OPTH DROPS OU SCH (11:10)
[2017-08-11] MEDS: VALSARTAN 160 MG TABLET (UD) PO SCH (11:11)
[2017-08-11] MEDS: HEPARIN NA (PORCINE) 5,000 UNITS/ML 1ML VIAL SQ SCH (11:11)
[2017-08-11] MEDS: CYANOCOBALAMIN 1,000 MCG TABLET (FP) PO SCH (11:11)
[2017-08-11] MEDS: ASPIRIN 81 MG CHEWABLE TABLETS PO SCH (11:11)
[2017-08-11] MEDS: amLODIPine BESYLATE 5 MG TABLET (FP) PO SCH (11:12)
[2017-08-11] MEDS: CLOPIDOGREL BISULFATE 75 MG TABLET (FP) PO SCH (11:12)
[2017-08-11] MEDS: CARVEDILOL 6.25 MG TABLET (FP) PO SCH (11:12)
[2017-08-11] MEDS: MEMANTINE HCL 10 MG TABLET (FP) PO SCH (11:12)
[2017-08-11] MEDS: OSELTAMIVIR PHOSPHATE 30 MG CAPSULE PO SCH (11:13)
== END 2017-08-11 11:54 | DRG 153 ==
LOC: JER 17:04 → JERBED 20:58 → J6S 08-09 21:17
PROVIDERS: ADMIT Internal Medicine; ATTEND Registered Nurse
DX: J11.1 Influenza due to unidentified influenza virus with other respiratory manifestations (principal); F03.90 Unspecified dementia, unspecified severity, without behavioral disturbance, psychotic disturbance, mood disturbance, and anxiety; I10 Essential (primary) hypertension; E78.5 Hyperlipidemia, unspecified; I25.10 Atherosclerotic heart disease of native coronary artery without angina pectoris; R41.82 Altered mental status, unspecified; M79.1 Myalgia; D72.828 Other elevated white blood cell count; Z95.5 Presence of coronary angioplasty implant and graft; Z87.891 Personal history of nicotine dependence
CPT/HCPCS: 36415; 71045-TC-FY; 80053; 81003; 82550; 82803; 83605; 83735; 84100; 84484; 85025; 85027; 85610; 85730; 87040; 87086; 87804; 93005; 93010; 99284-25; J1644